=== PATIENT | male | born 1975 | race African-American/Black ===

== ENCOUNTER 2019-01-06 07:44 | Day surgery (SDC) | payer OTHER ==
[~2019-01-06 07:44] MED LIST: ceFAZolin 2GM PREMIX 2 GM/50 ML BAG IV ONE
[2019-01-06] MEDS ORDERED: PROPOFOL 20 ML IV ONE (09:51)
[2019-01-06] MEDS ORDERED: LIDOCAINE 2% PF 5 ML VIAL. ONE (09:51)
[2019-01-06] MEDS ORDERED: ROCURONIUM 50 MG/5 ML VIAL. ONE (09:51)
[2019-01-06] MEDS ORDERED: fentaNYL PF VIAL 100 MCG/2 ML VIAL ONE ×3 (09:51→16:32)
--- NOTE | 2019-01-06 10:59 | DISCH ---
DISCHARGE INSTRUCTIONS Condition on Discharge Condition on Discharge: Stable Activity After Discharge Activity Instructions for Disc: Other, see below (keep splint intact no lifting with right arm) Bathing Instructions: Shower-keep dressing dry Weight Bearing Status after Di: Non weight bearing Diet after Discharge Diet after Discharge: Regular Wound Incision Care Wound/Incision Care: Ice to area for comfort, Do not change dressing Contacting the after DC Call your doctor for: Concerns you may have Follow-Up Follow up with: Dr. Wells 1 week MORALES WELLS MD Jan 06, 2019 10:59
[2019-01-06] MEDS ORDERED: IV RINGERS,LACTATED 1000ML 1,000 ML IV SCH ×2 (11:30→16:33)
[2019-01-06] MEDS ORDERED: SUCCINYLCHOLINE 200 MG/10 ML VIAL. ONE (11:37)
[2019-01-06] MEDS ORDERED: ROPIVacaine 0.5% PF 20 ML VIAL. ONE (12:54)
[2019-01-06] MEDS ORDERED: BUPIVACAINE MPF 0.5% 30 ML VIAL. ONE (12:54)
[2019-01-06] MEDS ORDERED: ONDANSETRON PF 4 MG/2 ML VIAL. ONE (14:12)
[2019-01-06] MEDS ORDERED: DEXAMETHASONE SOD PHOS 20 MG/5 ML VIAL. ONE (14:12)
[2019-01-06] MEDS ORDERED: SEVOFLURANE 31 TO 60 MINUTES. IH ONE (14:25)
[2019-01-06] MEDS ORDERED: FAMOTIDINE 20 MG/2 ML VIAL ONE (14:37)
[2019-01-06] MEDS ORDERED: SEVOFLURANE 61 TO 120 MINUTES. IH ONE (15:33)
[2019-01-06] MEDS ORDERED: ONDANSETRON PF 4 MG/2 ML VIAL. IV PRN (16:45)
[2019-01-06] MEDS ORDERED: fentaNYL PF VIAL 100 MCG/2 ML VIAL IV PRN ×2 (16:45)
[2019-01-06] MEDS ORDERED: LIDOCAINE 1% PF 2 ML VIAL. ID PRN (16:45)
[2019-01-06] MEDS ORDERED: MORPHINE SULFATE 4 MG/ML VIAL. IV PRN (16:45)
[2019-01-06] MEDS ORDERED: HYDROmorphone 2 MG/ML VIAL IV PRN (16:45)
[2019-01-06] MEDS ORDERED: PROCHLORPERAZINE 10 MG/2 ML VIAL. IV PRN (16:45)
[2019-01-06] MEDS ORDERED: OXYC-325 PO (17:41)
[2019-01-06] MEDS ORDERED: oxyCODONE/APAP 5/325 1 TAB TABLET PO ONE (17:45)
[2019-01-06 18:07] VITALS: BP 164/80
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
== END 2019-01-06 19:00 | disposition home or self-care (01) ==
LOC: SURG 07:44
PROVIDERS: ATTEND Orthopaedic Surgery
DX: S46.311A Strain of muscle, fascia and tendon of triceps, right arm, initial encounter (principal); S52.021A Displaced fracture of olecranon process without intraarticular extension of right ulna, initial encounter for closed fracture; K08.409 Partial loss of teeth, unspecified cause, unspecified class; V49.9XXA Car occupant (driver) (passenger) injured in unspecified traffic accident, initial encounter; Y93.89 Activity, other specified; Y92.89 Other specified places as the place of occurrence of the external cause; Y99.8 Other external cause status
CPT/HCPCS: 24341; A7015; C1713; J0330; J0696; J1100; J2001; J2405; J2704; J2795; J3010; J3490